=== PATIENT | female | born 1985 | race African-American/Black ===

== ENCOUNTER 2022-03-03 07:04 | Emergency (ER) | payer SELFPAY ==
[~2022-03-03] VITALS: Ht 162.6 cm; Wt 57.0 kg
[2022-03-03] MEDS ORDERED: MORPHINE SULFATE 4 MG/ML CPJ (NOT FOR IM USE) IV ONE (09:00)
[2022-03-03] MEDS ORDERED: ONDANSETRON HCL 4MG/2ML INJ IV ONE (12:00)
[2022-03-03] MEDS ORDERED: KETOROLAC 15MG/ML VIAL IV ONE (12:00)
[2022-03-03 12:08] LABS: BASOPHILS % 0.1 % (0.0-2.0); HEMOGLOBIN. 12.1 g/dL (12.0-16.0); LYMPHOCYTES % 8.6 % (20.0-50.0); MEAN CORPUSCULAR HEMOGLOBIN 27.4 pg (28.0-32.0); MEAN CORPUSCULAR VOLUME 83.7 fL (81.0-99.0); MEAN PLATELET VOLUME 7.2 fl (7.4-10.4); MONOCYTES % 4.9 % (2.0-8.0); NEUTROPHILS % 86.4 % (40.0-76.0); PLATELET 330 x1000/uL (130-400); RED BLOOD CELL COUNT 4.42 mill/uL (4.2-5.4); RED CELL DISTRIBUTION WIDTH 13.9 % (11.6-14.6)
[2022-03-03 12:11] LABS: CHLORIDE 108 mEq/L (98-107)
[2022-03-03 12:21] LABS: HCG SCREEN NEGATIVE
[2022-03-03 13:30] VITALS: BP 121/78
[2022-03-03 13:31] LABS: CLARITY URINE CLEAR (CLEAR); COLOR URINE YELLOW (YELLOW); KETONES URINE 4+ (NEGATIVE); LEUKOCYTE ESTERASE URINE NEGATIVE (NEGATIVE); NITRITE URINE NEGATIVE (NEGATIVE); OCCULT BLOOD URINE NEGATIVE (NEGATIVE); PH URINE 7.5 (4.5-8.0); PROTEIN URINE TRACE (NEGATIVE); SPECIFIC GRAVITY URINE 1.031 (1.005-1.030)
[2022-03-03] MEDS ORDERED: FAMO-135 PO (13:50)
[2022-03-03] MEDS ORDERED: MAG-55 MT (13:50)
== END 2022-03-03 15:00 | disposition home or self-care (01) ==
LOC: ER 07:04
DX: R10.32 Left lower quadrant pain (principal); K52.9 Noninfective gastroenteritis and colitis, unspecified
CPT/HCPCS: 36415; 76830; 76856; 80053; 81003; 81025; 83605; 83690; 84703; 85025; 93976; 96374; 96375; 99284; J1885; J2270; J2405